=== PATIENT | male | born 1980 | race Caucasian/White ===

== ENCOUNTER 2024-09-05 02:14 | Emergency (ER) | payer MEDICAID, SELFPAY ==
[2024-09-05 02:15] VITALS: BMI 42.5
[2024-09-05 02:22] VITALS: BP 143/94; PULSE 89; RESP 19; TEMP 36.9; O2SAT 96
--- NOTE | 2024-09-05 02:29 | PD.EDRME ---
Rapid Medical Screening Exam RME Arrival date/time: 09/05/24 02:14 44 year old male present to Ed for c/o of back pain today I have greeted and performed a focused initial assessment of this patient. A comprehensive ED assessment and evaluation of the patient, analysis of all test results, and completion of the medical decision making process will be conducted by additional ED providers. Chief Complaint: Back Pain/Injury Time Seen by Provider: 09/05/24 02:15 Vital signs: Vital Signs Temperature 98.4 F 09/05/24 02:22 Pulse Rate 89 09/05/24 02:22 Respiratory Rate 19 09/05/24 02:22 Blood Pressure 143/94 H 09/05/24 02:22 Pulse Oximetry (%) 96 09/05/24 02:22 Oxygen Delivery Method Room Air 09/05/24 02:22
[2024-09-05] MEDS: predniSONE 20 MG TABLET 60 MG PO (02:32)
[2024-09-05] MEDS: KETOROLAC INJ 60 MG/2 ML VIAL 30 MG IM (02:33)
[2024-09-05] MEDS: CYCLObenzaPRINE 5 MG TABLET PO (02:33)
[2024-09-05 03:26] LABS: Collection Type, Urine Voided; Squamous Epithelial Cell,Urine 0 /hpf (0-5)
[2024-09-05 03:29] LABS: Bilirubin,Urine Negative (Negative); Blood,Urine Negative (Negative); Clarity,Urine Clear (Clear/Hazy); Color,Urine Yellow (Lt Yel-Yel); Glucose, Urine Negative (Negative); Ketones,Urine Negative (Negative); Leukocyte Esterase,Urine Negative (Negative); Nitrite,Urine Negative (Negative); Protein,Urine Negative (Neg - Trace); RBC,Urine 4 /hpf (0-3); Specific Gravity,Urine 1.021 (1.001-1.035); WBC,Urine 1 /hpf (0-5)
--- NOTE | 2024-09-05 04:01 | EDNOTE_ITS ---
ED Back Injury Pain RME/HPI General Chief Complaint: Back Pain/Injury Stated Complaint: Pain in Lower back shooting down legs Time Seen by Provider: 09/05/24 02:15 Arrival date/time: 09/05/24 02:14 44 year old male present to emergency room with c/o of low back pain radiated down legs for 1 day. Denies new trauma No fevers No unexplained weight loss of night sweats No recent surgeries or recurrent bacterial infections No IVDU Patient is not immunocompromised Denies any new focal neurological deficits or new motor weakness Denies bowel or bladder incontinence or saddle anesthesia LOCATION: diffuse low back SEVERITY: Symptoms are described as being severe with limitations on activities of daily living QUALITY: Symptoms are described as being dull or achy CONTEXT: The patient is unable to identify any inciting events. DURATION/TIMING: The symptoms started approximately one day ago and have been constant this then. ASSOCIATED SYMPTOMS: The patient is unable to identify any other associated symptoms. MODIFYING FACTORS: The patient is unable to identify any alleviating or aggravating symptoms. PERTINENT ROS: no fevers, no IVDU, denies any ripping or tearing sensations, no associated abdominal pain, no focal neurological deficits and denies any saddle anesthesia, and no bowel or bladder incontinence REVIEW OF SYSTEMS: See History of Present Illness - with the exception of those mentioned in the history of present illness, all other systems reviewed and reported as negative GENERAL: In general the patient is awake, interactive, in an emergency department gurney. HEAD/EYES/EARS/NOSE/THROAT: normo-cephalic, atraumatic, mucus membranes are moist, anicteric, palpebral conjunctiva is pink, trachea is midline. CARDIOVASCULAR: regular rate and regular rhythm, no murmurs, heart sounds are not distant, strong pulses in all four extremities that are equal and symmetric bilateral upper and lower extremities, normal capillary refill. CHEST/PULMONARY: normal chest rise and fall, good air movement, clear to auscultation bilaterally, normal inspiratory to expiratory ratios without kerwin dence of respiratory distress. NECK: No midline/Paraspinal tenderness, no step off ROM/Strenght intact No Kernig and bruzinski sign. No trauma ABDOMEN: soft, not tender, no masses appreciated BACK: lower paraspinal tenderness. no step off no midline tenderness normal range of motion without pain. NEUROLOGICAL: cranio-facial features are symmetric, moves all four extremities equally without obvious limitations or weakness. EXTREMITY: no tenderness to palpation over the long bones or large joints of the bilateral upper and lower extremities, no joint swelling, no joint erythema, no signs of trauma, no unilateral leg swelling and no peripheral edema. SKIN: warm, dry, well-perfused, no jaundice, no rash, no telangiectasias or petechia. PSYCH: calm, cooperative, no evidence of psychosis or agitation RME / HPI RME / HPI Narrative: 09/05/24 02:14 44 year old male present to Ed for c/o of back pain today I have greeted and performed a focused initial assessment of this patient. A comprehensive ED assessment and evaluation of the patient, analysis of all test results, and completion of the medical decision making process will be conducted by additional ED providers. Related Data Previous Rx's ?Medication ?Instructions ?Recorded docusate sodium 100 mg capsule 100 mg PO BID #40 caps 01/03/21 (Colace) hydromorphone 2 mg tablet 2 mg PO Q6H PRN pain (scale score 01/03/21 (Dilaudid) 7-10) #20 tabs ibuprofen 600 mg tablet 600 mg PO Q8H PRN pain (scale 01/03/21 score 4-6) #15 tabs ibuprofen 800 mg tablet 800 mg PO TID PRN pain #30 tabs 01/23/22 acetaminophen 500 mg capsule 500 mg PO QID PRN fever or pain 11/15/22 #30 caps loperamide 2 mg capsule (Imodium 2 mg PO Q6H PRN loose stool #7 caps 11/15/22 A-D) ondansetron 4 mg disintegrating 4 mg PO Q8H PRN nausea and 11/15/22 tablet vomiting #7 tabs cyclobenzaprine 10 mg tablet 10 mg PO BID PRN muscle spasm #20 09/05/24 tabs lidocaine 5 % topical patch 1 patch topical QDAY #15 ea 09/05/24 methylprednisolone 4 mg tablets in 4 mg PO .as directed #21 tabs 09/05/24 a dose pack (Medrol (Mike)) Allergies Allergy/AdvReac Type Severity Reaction Status Date / Time codeine Allergy Mild Rash Verified 11/15/22 17:45 Course Course Course Narrative: constellation of symptoms similar to prior flares. Low suspicion for acute cord compression or cauda equina at this time, given presentation and symptoms, including epidural abscess or hematoma. Patient has no history of malignancy, active or distant history. ?Patient has no unexplained weight loss. No recent fevers, rigors, malaise, or recent infection. ?No history of IVDU or skin-popping. ?Patient does not have any history concerning for saddle anesthesia/perianal sensory loss or complaining of decreased rectal tone. Patient does not have urinary retention or inability to control urine from overflow. ?Patient has no tenderness overlying spinous process. Patient has no focal weakness on examination. rx: flexeril, medro dose mike, lidocaine patch Given exam and history, low suspicion for cord compression, cauda equina, epidural abscess/hematoma. Distally neurovascuarly intact. Query likely musculoskeletal component versus sciatica. Discussed pain control, physical therapy and follow up with PMD. Cautious return precautions discussed w/ full understanding Quality Measures none Orders Category Date Time Status UA [Urinalysis] Stat Lab 09/05/24 03:20 Completed Urine Culture Stat Lab 09/05/24 03:20 Received CYCLObenzaPRINE [Flexeril] Med 09/05/24 02:28 Discontinued 5 mg PO X1 ONE Ketorolac Inj [Toradol Inj] Med 09/05/24 02:28 Discontinued 30 mg IM X1 ONE predniSONE Med 09/05/24 02:28 Discontinued 60 mg PO X1 ONE Reevaluation(s) Reevaluation #1: patient feel better after treatment. Vital Signs Vital signs: Vital Signs Temperature 98.4 F 09/05/24 02:22 Pulse Rate 89 09/05/24 02:22 Respiratory Rate 19 09/05/24 02:22 Blood Pressure 143/94 H 09/05/24 02:22 Pulse Oximetry (%) 96 09/05/24 02:22 Oxygen Delivery Method Room Air 09/05/24 02:22 Back Pain / Injury Patient data External records reviewed:: None Clinical information provided by:: patient Social determinants that could affect healthcare access:: none Patient has the following chronic illnesses:: back pain/strain How is presenting disease/condition affected by chronic disease/condition?: exacerbated by Evaluation data The following diagnostics were reviewed and interpreted by me:: lab results Lab and/or radiology exams considered but not ordered:: none Interpretation Summary: urine; no infection + rbc Medications / Prescriptions Medications or Prescriptions considered but not ordered:: none Medication administrations:: Medication Administration History Discontinued Medications Cyclobenzaprine HCl (Cyclobenzaprine 5 Mg Tablet) 5 mg PO X1 ONE Stop: 09/05/24 02:29 Last Admin: 09/05/24 02:33 Dose: 5 mg Documented By: JAIME Ketorolac Tromethamine (Ketorolac Inj 60 Mg/2 Ml Vial) 30 mg IM X1 ONE Stop: 09/05/24 02:29 Last Admin: 09/05/24 02:33 Dose: 30 mg Documented By: JAIME Prednisone (Prednisone 20 Mg Tablet) 60 mg PO X1 ONE Stop: 09/05/24 02:29 Last Admin: 09/05/24 02:32 Dose: 60 mg Documented By: JAIME as stated below Consultations Consultation(s) initiated? (list below): No Diagnosis Differential diagnosis back pain/injury: lumbar radiculopathy, sciatica and strain of lumbar region Most likely diagnosis given after review of the tests above:: back pain Admission Indicated Admission indicated?: not indicated Admission Request Was there a request for admission?: No Disposition Plan Disposition Plan: Discharge Discharge Attestation Discharge Attestation: The patient and all family members were given an opportunity to ask questions and understood the discharge instructions. Discharge instructions specifically effects, indications for sooner follow up or return to the emergency department, and the expected course of current diagnosis. Patient condition: Stable Discharge Plan Plan Patient Disposition: HOME (Self Care) Health Concerns: Follow with PMD as directed Take tylenol or motrin as need Return to ED if sx worsen Prescriptions/Referrals Prescriptions/Med Rec: New cyclobenzaprine 10 mg tablet 10 mg PO BID PRN (Reason: muscle spasm) Qty: 20 0RF methylprednisolone [Medrol (Mike)] 4 mg tablets,dose pack 4 mg PO .as directed Qty: 21 0RF lidocaine 5 % adhesive patch,medicated 1 patch topical QDAY Qty: 15 0RF Rx Instructions: leave on most painful area for up to 12 hrs No Action hydromorphone [Dilaudid] 2 mg tablet 2 mg PO Q6H MDD 4 PRN (Reason: pain (scale score 7-10)) Qty: 20 0RF docusate sodium [Colace] 100 mg capsule 100 mg PO BID Qty: 40 0RF ibuprofen 600 mg tablet 600 mg PO Q8H PRN (Reason: pain (scale score 4-6)) Qty: 15 0RF ibuprofen 800 mg tablet 800 mg PO TID PRN (Reason: pain) Qty: 30 0RF ondansetron 4 mg tablet,disintegrating 4 mg PO Q8H PRN (Reason: nausea and vomiting) Qty: 7 0RF acetaminophen 500 mg capsule 500 mg PO QID PRN (Reason: fever or pain) Qty: 30 0RF loperamide [Imodium A-D] 2 mg capsule 2 mg PO Q6H PRN (Reason: loose stool) Qty: 7 0RF Referrals: No Primary/Family,Physician [Primary Care Provider] - In 1 week Problem List Clinical Impression: Back pain Patient/Caregiver Discharge Instructions Education Materials: Back Basics: A Healthy Spine Print Language: Kyrgyz Stand Alone Forms: Nathalie Award Info., Patient Portal Info Letter
[2024-09-05 04:07] VITALS: BP 135/76; PULSE 86; RESP 18; TEMP 36.8; O2SAT 95
== END 2024-09-05 04:08 | disposition home or self-care (01) ==
PROVIDERS: Physician Assistant; Emergency Provider Emergency Medicine
DX: M54.50 Low back pain, unspecified (principal)
CPT/HCPCS: 81001; 87086; 96372; 99283; J1885; J7512; A9270